=== PATIENT | female | born 1925 | race Caucasian/White ===

== ENCOUNTER 2017-04-28 14:09 | Outpatient (CLI) | payer MEDICARE ==
--- NOTE | 2017-04-28 16:30 | RAD ---
FRONTAL VIEW CHEST 04/28/17 COMPARISON: 02/11/17 INDICATION: Cough. FINDINGS: Lungs are hyperinflated. There is no consolidation. There is minimal blunting of the left lateral co stophrenic sulcus. Otherwise, no significant interval detrimental change identified. IMPRESSION: Slight blunting of the left lateral costophrenic sulcus. This could be on the basis of pleural thick ening or minimal pleural fluid. Followup may be obtained with dedicated two view chest as necessary. POS: [facility]
== END 2017-04-28 14:10 | disposition home or self-care (01) ==
LOC: RAD-FRANK 14:09
PROVIDERS: ATTEND Nurse Practitioner Family
DX: J40 Bronchitis, not specified as acute or chronic (principal); R91.8 Other nonspecific abnormal finding of lung field
CPT/HCPCS: 71010

== ENCOUNTER 2017-07-01 09:13 | Outpatient (CLI) | payer MEDICARE ==
--- NOTE | 2017-07-01 09:37 | RAD ---
CHEST PA AND LATERAL: HISTORY: An 89-year-old female with cough. FINDINGS: Heart size is within normal limits. There is blunting of both costophrenic angles, evidence for some small pleural effusions. Arthrosis and degenerative changes are noted of both shoulders with some p robable left-sided synovial osteochondromas and right-sided calcific peritendinosis. Atherosclerosis of the aorta with ectasia. Biapical pleural thickening. No confluent pneumonia or overt edema. IMPRESSION: Probable small pleural effusions. Atherosclerosis of the aorta with ectasia. No confluent pneumonia . Degenerative-type changes of both shoulders. POS: [facility]
== END 2017-07-01 09:14 | disposition home or self-care (01) ==
LOC: RAD-FRANK 09:13
PROVIDERS: ATTEND Nurse Practitioner Family
DX: J40 Bronchitis, not specified as acute or chronic (principal); I70.0 Atherosclerosis of aorta; M19.011 Primary osteoarthritis, right shoulder; M19.012 Primary osteoarthritis, left shoulder
CPT/HCPCS: 71046

== ENCOUNTER 2017-08-31 10:58 | Outpatient (CLI) | payer MEDICARE ==
--- NOTE | 2017-08-31 13:06 | RAD ---
LUMBAR SPINE SERIES THREE VIEWS: History: Low back pain. FINDINGS: Bones are demineralized. There are compression changes involving the superior endplate of T12, the orosco perior and inferior endplates of L4 and L5. In reviewing mold breaker film from a previous CT examination do brenda in 2006, the compression changes of the L4 were present. L5 and T12 compression changes do not jessica ear to have been present at that time. The bones are demineralized. There are moderate degenerative f acet changes. Pedicles are intact. IMPRESSION: Multilevel compression changes which appear to be on the basis of osteoporosis. Age of these are inde terminate. There is diffuse bony demineralization noted. POS: [facility]
== END 2017-08-31 10:59 | disposition home or self-care (01) ==
LOC: RAD-FRANK 10:58
PROVIDERS: ATTEND Nurse Practitioner Family
DX: M54.5 Low back pain (principal)
CPT/HCPCS: 72100